=== PATIENT | male | born 1970 | race American Indian/Alaskan Native ===

== ENCOUNTER 2017-08-14 00:10 | Emergency (ER) | payer SELFPAY ==
[2017-08-14 03:05] LABS: Basophils # (Auto) 0.1 K/mm3 (0.0-0.1); Basophils % (Auto) 0.9 % (0.0-1.8); Eosinophils # (Auto) 0.1 K/mm3 (0.0-0.4); Eosinophils % (Auto) 0.7 % (0.0-4.3); Hematocrit 38.3 % (35.5-45.6); Hemoglobin 12.8 gm/dl (11.8-15.2); Lymphocytes % (Auto) 17.1 % (13.4-35.0); Mean Corpuscular HGB Conc 33 % (32-34); Mean Corpuscular Hemoglobin 28 pg (28-32); Mean Corpuscular Volume 83 fl (84-94); Monocytes # (Auto) 0.7 K/mm3 (0.0-0.8); Monocytes % (Auto) 5.9 % (0.0-7.3); Platelet Count 204 K/mm3 (140-440)
[2017-08-14 03:46] LABS: Calcium 9.1 mg/dL (8.4-10.2)
[2017-08-14 07:58] VITALS: BP 119/86
== END 2017-08-14 09:40 | disposition left against medical advice (07) ==
LOC: ED 00:10
DX: R10.9 Unspecified abdominal pain (principal); R11.10 Vomiting, unspecified; Z53.21 Procedure and treatment not carried out due to patient leaving prior to being seen by health care provider
CPT/HCPCS: 36415; 80048; 82962; 85025